=== PATIENT | male | born 1990 ===

== ENCOUNTER 2023-02-23 00:42 | Emergency (ER) | payer OTHER, SELFPAY ==
[2023-02-23 00:44] VITALS: BP 152/80; PULSE 85; RESP 20; TEMP 37.1; O2SAT 100
[2023-02-23 01:51] VITALS: BP 142/67; RESP 18; TEMP 36.7; O2SAT 96
--- NOTE | 2023-02-23 02:26 | PC.NURSE ---
Patient leaving against medical advice, does not want any paperwork. Denies suicidal or homicidal thoughts. Dr. Hector evans.
--- NOTE | 2023-02-23 05:38 | ED.PSYCH ---
HPI - Psych General Chief Complaint: Psychiatric Symptoms Stated Complaint: mental health Time Seen by Provider: 02/23/23 01:27 Source: EMS Mode of arrival: EMS History of Present Illness HPI Narrative: Patient is a 32-year-old male brought in by police presenting today with mental health problem. Please report that they saw him walking down [address] earlier today they stop by to help. Even again was found by [employer]. Talking nonsensical he has a healed meat out of a hip cap. Police taken his bike and shield. He is not complaining of suicidal or homicidal ideations. Generally slightly irritated with the process. Still feels to be hospitalized he is not. He denies any homicidal she will ideation Review of Systems Review of Systems ROS Unobtainable: All systems reviewed & are unremarkable except as noted in HPI and below Patient History Social History Smoking Status: Current every day smoker Smoking Status: Current every day smoker tobacco type: cigarettes and vaping alcohol intake frequency: a few times a week Substance Use Type: former substance user Exam Initial Vital Signs Initial Vital Signs: Vital Signs Temperature 98.8 F 02/23/23 00:44 Pulse Rate 85 02/23/23 00:44 Respiratory Rate 20 02/23/23 00:44 Blood Pressure 152/80 H 02/23/23 00:44 Pulse Oximetry 100 02/23/23 00:44 Oxygen Delivery Method Room Air 02/23/23 00:44 GENERAL: Alert disheveled 32-year-old male CARDIOVASCULAR: peripheral pulses in tact, cap refill <2 sec RESPIRATORY: No respiratory distress, speaks in full sentences without difficulty EXTREMITIES: Normal range of motion, no clubbing or edema. Neurovascularly intact NEUROLOGICAL: Cranial nerves II through XII grossly intact. Normal gait and speech. SKIN: Warm, dry, no petechiae, no rashes or lesions. Course Orders Ordered: ED Orders 02/23/23 01:27 Consult to [employer] - Post Acute Care Nurse Urgent Vital Signs Vital signs: Vital Signs - 8 hr 02/23/23 00:44 02/23/23 01:51 Temperature 98.8 F 98.1 F Pulse Rate 85 Respiratory Rate 20 18 Blood Pressure 152/80 H 142/67 H Pulse Oximetry 100 96 Oxygen Delivery Method Room Air Room Air MDM - Psych Lab Data Labs: Urine Dip Bedside Urine Glucose Negative Bedside Urine Bilirubin + 1 Bedside Urine Ketone - Negative Urine Specific [place] 1.03 Bedside Urine Occult Blood - Negative Bedside Urine pH 6.0 Bedside Urine Protein +/- 15 Bedside Urine Urobilinogen - Negative Bedside Urine Nitrite - Negative Bedside Urine Leukocytes - Negative Esterase MDM Narrative Medical decision making narrative: Patient 32-year-old male with obvious psychiatric illness. At this time fortunately he is not homicidal or suicidal. He is declining an IV start and or medication. At this time he is gotten up started to leave. Try to redirect patient however not successful. Patient really does not meet inpatient criteria likely manic. No real home support all the mom's at bedside in his supportive best they can she can not be there 13/03. At this time no need for admission criteria patient is adamant about leaving ED before results are back and continues to refuse lab draw. At this time patient is not requiring admission. No evidence of meningeal signs he is not having neck pain. Discharge Plan Departure Patient Disposition: Left Against Medical Advice Clinical Impression: Left against medical advice Stand Alone Forms: Against Medical Advice
== END 2023-02-23 02:28 | disposition left against medical advice (07) ==
PROVIDERS: Emergency Provider Emergency Medicine
DX: F99 Mental disorder, not otherwise specified (principal); Z53.29 Procedure and treatment not carried out because of patient's decision for other reasons
CPT/HCPCS: 81003; 99282; 99283